=== PATIENT | female | born 1955 | race Caucasian/White ===

== ENCOUNTER → 2017-07-19 | Outpatient (CLI) | payer OTHER ==
[~2017-07-19] MED LIST: AMITIZA24 MCG PO; BUPROPION XL150 MG PO; LOVAZA1 GM PO; TIZANIDINE HCL4 MG PO; Z.0.LEVOTHYROXINE125 PO; Z.0.OXAPROZIN600 MG PO; Z.0.PREMARIN0.9 MG PO
--- NOTE | 2017-07-19 15:22 | Diagnostic Imaging Report ---
EXAM: Complete Abdominal Ultrasound INDICATION: \[id number] \S\1434 \S\ABNORMAL LIVER FUNCTION STUDIES COMPARISON: None available. TECHNIQUE: Transverse and longitudinal images of the upper abdomen were obtained. FINDINGS: Liver: Size: 13.1 cm in the right midclavicular line, normal Appearance: Normal echogenicity, questionable mildly nodular contour Mass: No focal masses Spleen: Size: 8.2 cm in length, normal Echogenicity: Normal Mass: No focal masses Gallbladder: Surgically absent. Bile Ducts: Intrahepatic Ducts: No dilatation Extrahepatic Ducts: Common bile duct measures 0.7 cm, no dilatation Pancreas: Visualized pancreas is unremarkable. Right Kidney: Size: 11.6 cm Echogenicity: Normal Parenchymal thickness: Normal Collecting System: No hydronephrosis Stone: None Cyst/Mass: None Left Kidney: Size: 10.4 cm Echogenicity: Normal Parenchymal thickness: Normal Collecting System: No hydronephrosis Stone: None Cyst/Mass: None Vessels: Aorta: Visualized portions are normal Inferior Vena Cava: Visualized portions are normal Main Portal Vein: 1 cm, normal size with hepatopetal flow. Free Fluid: No ascites or pleural effusion IMPRESSION: Questionable mildly nodular hepatic contour, which can be seen with cirrhotic changes. Otherwise unremarkable abdominal ultrasound. Signed by: Dr. Andrews Pritchett MD on 07/19/2017 3:18 PM
== END ==
LOC: US 14:09
PROVIDERS: ATTEND Family Medicine
DX: R94.5 Abnormal results of liver function studies (principal)
CPT/HCPCS: 76700

== ENCOUNTER → 2017-07-28 | Outpatient (CLI) | payer OTHER ==
[~2017-07-28] MED LIST changes: +GADOBENATE DIMEGLUMINE 1 ML IV ONE
[2017-07-28 09:36] LABS: BLOOD UREA NITROGEN 19 mg/dL (7-26); BUN/CREATININE RATIO 25 (6-25); CREATININE, SERUM 0.77 mg/dL (0.57-1.11); EST GLOMERULAR FILTRATION RATE > 60 ML/MIN (60-)
--- NOTE | 2017-07-28 11:57 | Diagnostic Imaging Report ---
PROCEDURE: MRI ABDOMEN WOW TECHNIQUE: COMPARISON: CT, CT ABDOMEN/PELVIS W, 04/02/2012, 9:38. Patients [facility], US, US ABDOMEN COMPLETE, 07/19/2017, 14:34. INDICATIONS: Abnormal ultrasound FINDINGS: LIVER: Slight nodular contour of the left hepatic lobe is again observed, no additional findings to suggest hepatic cirrhosis. No hepatic signal abnormality. 2.3 cm T1 hypointense lesion in the anterior aspect of segment 4A/4B on image 69 series 11 (arterial phase) not identified on the remainder postcontrast scans. There are a few tiny T2 hyperintense lesions scattered throughout the hepatic parenchyma consistent with small cysts, the largest measuring 2.55 cm on image 21 series 7, located just medial to the confluence of right and left hepatic ducts. No enhancing lesions. BILIARY: No ductal dilatation or filling defect. The gallbladder is surgically absent. PANCREAS: No mass or ductal dilatation. SPLEEN: No splenomegaly. ADRENALS: No nodules. KIDNEYS: Mild left pelvocaliectasis is nonspecific. No enhancing renal lesions. PERITONEUM / RETROPERITONEUM: No upper abdominal free fluid. LYMPH NODES: No upper abdominal lymphadenopathy. VESSELS: Unremarkable. BONES AND SOFT TISSUES: Unremarkable. IMPRESSION: 1. Slight nodularity of hepatic contour the left lobe again observed, however, no additional features of cirrhosis. No suspicious hepatic lesions. 2. Status post cholecystectomy. No significant biliary dilatation. Nalini Johnson M.D. Dictated by: Nalini Johnson M.D. on 07/28/2017 at 11:56 Electronically approved by: Nalini Johnson M.D. on 07/28/2017 at 11:56
== END ==
LOC: MRI 08:20
PROVIDERS: ATTEND Family Medicine
DX: R93.5 Abnormal findings on diagnostic imaging of other abdominal regions, including retroperitoneum (principal)
CPT/HCPCS: 36415; 74183; 82565; 84520

== ENCOUNTER → 2017-08-16 | Day surgery (SDC) | payer OTHER ==
[~2017-08-16] MED LIST changes: +ESTRADIOL1 EAC2; +ESTRADIOL1 MG PO; +FENTANYL CITRATE/PF 100MCG/2 ML INJ ONE; -GADOBENATE DIMEGLUMINE 1 ML IV ONE; +HYOSCYAMINE SULFATE 0.5 MG/ML AMP ONE; +MIDAZOLAM HCL 2 MG/2 ML VIAL ONE; +NAPROXEN250 MG PO; +ZETIA10 MG PO
--- OUTSIDE RECORDS SUMMARY | 2017-08-16 09:49 | XMS REPORT ---
Author Author [facility] Address Unknown Phone Unavailable Care Team Providers Care Body Line Finisher Name Role Phone LY LAM Unavailable Unavailable Problems This patient has no known problems. Allergies, Adverse Reactions, Alerts This patient has no known allergies or adverse reactions. Medications This patient has no known medications. Results Test Description Test Time Test Comments Text Results Atomic Results Result Comments MRI ABDOMEN WOW [place] [address] Patient Name: MASOOD MOREIRA MR #: [id number] : 1955 Age/Sex: 62/F Req # : [id number] [facility] Physician: Ordered by: LY LAM MD Report #: [id number] Location: MRI Room/Bed: Procedure: [id number] MRI/MRI ABDOMEN WOW Exam Date: Exam Time: REPORT STATUS: Signed PROCEDURE: MRI ABDOMEN WOW TECHNIQUE: COMPARISON: CT, CT ABDOMEN/PELVIS W, 04/02/2012, 9:38. [facility], US, US ABDOMEN COMPLETE, 07/19/2017, 14:34. INDICATIONS: Abnormal ultrasound FINDINGS: LIVER: Slight nodular contour of the left hepatic lobe is again observed, no additional findings to suggest hepatic cirrhosis. No hepatic signal abnormality. 2.3 cm T1 hypointense lesion in the anterior aspect of segment 4A/4B on image 69 series 11 (arterial phase) not identified on the remainder postcontrast scans. There are a few tiny T2 hyperintense lesions scattered throughout the hepatic parenchyma consistent with small cysts, the largest measuring 2.55 cm on image 21 series 7, located just medial to the confluence of right and left hepatic ducts. No enhancing lesions. BILIARY: No ductal dilatation or filling defect. The gallbladder is surgically absent. PANCREAS: No mass or ductal dilatation. SPLEEN: No splenomegaly. ADRENALS: No nodules. KIDNEYS: Mild left pelvocaliectasis is nonspecific. No enhancing renal lesions. PERITONEUM / RETROPERITONEUM: No upper abdominal free fluid. LYMPH NODES: No upper abdominal lymphadenopathy. VESSELS: Unremarkable. BONES AND SOFT TISSUES: Unremarkable. IMPRESSION: 1. Slight nodularity of hepatic contour the left lobe again observed, however, no additional features of cirrhosis. No suspicious hepatic lesions. 2. Status post cholecystectomy. No significant biliary dilatation. Nalini Chen M.D. Dictated by: Nalini Chen M.D. on 2017 at 11:56 Electronically approved by: Nalini Chen M.D. on 07/28/2017 at 11:56 Dictated By: BECKA CHEN MD, MD 1156 Transcribed By : ZAYRA on 07/28/17 1156 COPY TO: LY LAM MD ABDOMEN COMPLETE [place] [address] Patient Name: MASOOD MOREIRA MR #: [id number] : 1955 Age/Sex: 62/F Req #: [id number] Adm Physician: Ordered by: LY LAM MD Report #: [id number] Location: US Room/Bed: _ Procedure: [id number] US/US ABDOMEN COMPLETE Exam Date: 07/19/17 Exam Time: 1434 REPORT STATUS: Signed EXAM: Complete Abdominal Ultrasound INDICATION: COMPARISON: None available. TECHNIQUE: Transverse and longitudinal images of the upper abdomen were obtained. FINDINGS: Liver: Size: 13.1 cm in the right midclavicular line, normal Appearance: Normal echogenicity, questionable mildly nodular contour Mass: No focal masses Spleen: Size: 8.2 cm in length, normal Echogenicity: Normal Mass : No focal masses Gallbladder: Surgically absent. Bile Ducts: Intrahepatic Ducts: No dilatation Extrahepatic Ducts: Common bile duct measures 0.7 cm, no dilatation Pancreas: Visualized pancreas is unremarkable. Right Kidney: Size: 11.6 cm Echogenicity: Normal Parenchymal thickness: Normal Collecting System: No hydronephrosis Stone: None Cyst/Mass: None Left Kidney: Size: 10.4 cm Echogenicity: Normal Parenchymal thickness: Normal Collecting System: No hydronephrosis Stone: None Cyst/Mass: None Vessels: Aorta: Visualized portions are normal Inferior Vena Cava: Visualized portions are normal Main Portal Vein: 1 cm, normal size with hepatopetal flow. Free Fluid : No ascites or pleural effusion IMPRESSION: Questionable mildly nodular hepatic contour, which can be seen with cirrhotic changes. Otherwise unremarkable abdominal ultrasound. Signed by: Dr. Andrews Curry MD on 07/19/2017 3:18 PM Dictated By: ANDREWS CURRY MD 1518 Transcribed By: MINAL on 07/19/17 1518 COPY TO: LY LAM MD
--- NOTE | 2017-08-16 13:28 | Operative Report ---
DATE OF PROCEDURE: August 16, 2017 REFERRING PHYSICIAN: Dr. Gonsales. PROCEDURE PERFORMED: Colonoscopy and polypectomy. INDICATIONS FOR COLONOSCOPY: Colorectal cancer screening. Personal history of colon polyps. MEDICATION: Patient was done under MAC. Please see anesthesiologist's note. PROCEDURE: With the patient in the left lateral decubitus position, the flexible fiberoptic Olympus colonoscope was introduced into the rectum and advanced all the way to the cecum. The scope was then withdrawn slowly. Mucosa overlying the cecum, ascending colon and transverse colon appeared to be within normal limits. Diverticular disease was noted to involve the distal descending and the sigmoid colon. Three polyps were hot biopsied from the sigmoid, and 4 polyps were hot biopsied from the rectum. The scope was then retroflexed into the distal rectum and small internal hemorrhoids were noted, none of which was actively bleeding. The scope was then straightened out. The rectosigmoid area as well as the distal rectal area were decompressed. The scope was subsequently withdrawn. Patient tolerated the procedure well. IMPRESSION: 1. Diverticulosis. 2. Sigmoid colon polyps hot biopsied times 3. 3. Rectal polyps hot biopsied times 4. 4. Internal hemorrhoids, none actively bleeding. PLAN: Follow up histology. Initiate high-fiber low-fat diet. Initiate high-fiber supplement. Patient will need a followup colonoscopy in 3 years. Job#: [id number] EV cc:LY GONSALES MD
== END | disposition home or self-care (01) ==
LOC: OR 09:47
PROVIDERS: ATTEND Internal Medicine Gastroenterology
DX: Z12.11 Encounter for screening for malignant neoplasm of colon (principal); K63.5 Polyp of colon; K62.1 Rectal polyp; K57.30 Diverticulosis of large intestine without perforation or abscess without bleeding; K64.8 Other hemorrhoids; R94.5 Abnormal results of liver function studies; R00.1 Bradycardia, unspecified; E78.5 Hyperlipidemia, unspecified; E03.9 Hypothyroidism, unspecified; F32.9 Major depressive disorder, single episode, unspecified; Z01.810 Encounter for preprocedural cardiovascular examination
CPT/HCPCS: 45384; 93005; J1980; J2250

== ENCOUNTER → 2017-09-13 | Outpatient (CLI) | payer OTHER ==
[~2017-09-13] MED LIST changes: -FENTANYL CITRATE/PF 100MCG/2 ML INJ ONE; -HYOSCYAMINE SULFATE 0.5 MG/ML AMP ONE; -MIDAZOLAM HCL 2 MG/2 ML VIAL ONE
--- NOTE | 2017-09-13 19:33 | Diagnostic Imaging Report ---
Liver-Spleen Scan with SPECT Clinical information: Abnormal LFT's; nodules on liver seen on ultrasound. Comparison: MRI abdomen 07/28/2017; Abdominal US 07/19/2017 Report: Following intravenous administration of 7.7 mCi of Tc-99 and sulfur colloid, images of the liver and spleen were obtained in multiple projections. Tomographic images of the liver and spleen were also obtained. The liver appears normal to mildly increased in size. The spleen appears normal in size. Distribution of tracer activity is homogeneous throughout the hepatic and splenic parenchyma. No focal abnormalities are identified. No colloid shift is present. There is no apparent shift of tracer activity from the hepatic parenchyma to the spleen. Impression: 1. Borderline enlarged liver. 2. No scan evidence of hepatic or splenic masses. 3. Mild liver dysfunction is suspected. Correlate with liver function tests. 4. Hypersplenism is not present. Signed by: Dr. Savanah Sheridan M.D. on 09/13/2017 7:30 PM
== END ==
LOC: NM 09:08
PROVIDERS: ATTEND Internal Medicine Gastroenterology
DX: R94.5 Abnormal results of liver function studies (principal)
CPT/HCPCS: 78215; A9541

== ENCOUNTER → 2018-06-19 | Outpatient (CLI) | payer OTHER ==
--- NOTE | 2018-06-19 12:27 | Diagnostic Imaging Report ---
BILATERAL KNEES - 3 view(s) each HISTORY: Pain COMPARISON: None available. FINDINGS: Right: No displaced fracture. The osseous alignment is within normal limits. The joint spaces are well-maintained. The soft tissues appear unremarkable. Left: No displaced fracture. The osseous alignment is within normal limits. The joint spaces are well-maintained. The soft tissues appear unremarkable. IMPRESSION: No acute radiographic abnormality. Signed by: Dr. Andrews Pritchett MD on 06/19/2018 12:24 PM
== END ==
LOC: RAD 11:31
PROVIDERS: ATTEND Family Medicine
DX: M17.0 Bilateral primary osteoarthritis of knee (principal)

== ENCOUNTER → 2020-08-31 | Day surgery (SDC) | payer OTHER ==
[~2020-08-31] MED LIST changes: +ATENOLOL50 MG PO; +DUEXIS 800-26.1 EACH PO; +FENTANYL CITRATE/PF 100MCG/2 ML INJ ONE; +HYDROXYCHLOROQ200 MG PO; +LIDOCAINE HCL 2% LOCAL INJ 5 ML SDV VIAL INJ ONE; +PROPOFOL IV EMULSION 10 MG/ML 20 ML VIAL ONE; +ZELNORM6 MG PO
[2020-08-31 16:00] VITALS: BP 107/66
[2020-08-31 16:18] LABS: WBC,FECAL (FECAL LACTOFERRIN) NEGATIVE (NEGATIVE)
[2020-09-01 10:54] LABS: C DIFFICILE TOXIN A&B AMP PROB NEGATIVE (NEGATIVE)
== END | disposition home or self-care (01) ==
LOC: OR 11:34
PROVIDERS: ATTEND Internal Medicine Gastroenterology
DX: K52.9 Noninfective gastroenteritis and colitis, unspecified (principal); D12.2 Benign neoplasm of ascending colon; K62.1 Rectal polyp; K57.30 Diverticulosis of large intestine without perforation or abscess without bleeding; K59.00 Constipation, unspecified; K62.89 Other specified diseases of anus and rectum; K64.8 Other hemorrhoids; E03.9 Hypothyroidism, unspecified; I10 Essential (primary) hypertension; E78.5 Hyperlipidemia, unspecified; F95.9 Tic disorder, unspecified; R00.1 Bradycardia, unspecified; M19.90 Unspecified osteoarthritis, unspecified site; F32.9 Major depressive disorder, single episode, unspecified; Z88.6 Allergy status to analgesic agent; Z88.0 Allergy status to penicillin; Z01.810 Encounter for preprocedural cardiovascular examination; Z01.812 Encounter for preprocedural laboratory examination; Z20.822 Contact with and (suspected) exposure to COVID-19; Z68.27 Body mass index [BMI] 27.0-27.9, adult; Z90.49 Acquired absence of other specified parts of digestive tract
CPT/HCPCS: 45380; 83630; 83993; 87045; 87177; 87328; 87493; 93005; J3010; U0002; 45378; 45384; J2001

== ENCOUNTER → 2021-06-01 | Outpatient (CLI) | payer MEDICARE ==
[~2021-06-01] MED LIST changes: -FENTANYL CITRATE/PF 100MCG/2 ML INJ ONE; -LIDOCAINE HCL 2% LOCAL INJ 5 ML SDV VIAL INJ ONE; -PROPOFOL IV EMULSION 10 MG/ML 20 ML VIAL ONE
== END ==
LOC: MRI 07:22
PROVIDERS: ATTEND Internal Medicine
DX: M47.816 Spondylosis without myelopathy or radiculopathy, lumbar region (principal); M25.562 Pain in left knee; M25.561 Pain in right knee
CPT/HCPCS: 72148; 73565

== ENCOUNTER → 2022-03-23 | Outpatient (CLI) | payer MEDICARE | LOC: US 09:28 | PROVIDERS: ATTEND Nurse Practitioner Adult Health | DX: N18.31 Chronic kidney disease, stage 3a (principal) | CPT/HCPCS: 76770 ==

== ENCOUNTER → 2023-06-26 | Day surgery (SDC) | payer MEDICARE ==
[2023-06-21 12:23] LABS: BASOPHILS # (AUTO) 0.1 (0.0-0.1); EOSINOPHILS # (AUTO) 0.3 (0.0-0.4); HEMATOCRIT 41.9 % (34.2-44.1); HEMOGLOBIN 13.4 g/dL (12.0-16.0); LYMPHOCYTES # (AUTO) 1.4 (1.0-3.2); LYMPHOCYTES % 21.3 % (18.0-39.1); MEAN CORPUSCULAR HEMOGLOBIN 30.3 pg (28-32); MEAN CORPUSCULAR VOLUME 94.8 fL (81-99); MONOCYTES % 14.4 % (4.4-11.3); NEUTROPHILS # (AUTO) 3.8 (2.1-6.9); NEUTROPHILS % 57.1 % (38.7-80.0); PLATELET COUNT 201 x10e3/uL (140-360); RED BLOOD COUNT 4.42 x10e6/uL (3.6-5.1); RED CELL DISTRIBUTION WIDTH 13.1 % (11.7-14.4); WHITE BLOOD COUNT 6.58 x10e3/uL (4.8-10.8)
[~2023-06-26] MED LIST changes: +ARAVA20 MG PO; +EPHEDRINE SULFATE INJ 50 MG/ML VIAL ONE; +ESTRACE42.5 GM VG; +FENTANYL CITRATE/PF 100MCG/2 ML INJ ONE; +LACTATED RINGER'S 1,000 ML ONE; +LIDOCAINE HCL 2% LOCAL INJ 5 ML SDV VIAL INJ ONE; +NEURONTIN300 MG PO; +PROPOFOL IV EMULSION 10 MG/ML 20 ML VIAL ONE; +PROPOFOL IV EMULSION 10 MG/ML 50 ML VIAL IV ONE
[2023-06-26 10:57] VITALS: TEMP 97.8
[2023-06-26 11:30] VITALS: BP 110/75; PULSE 70; RESP 17; O2SAT 98
== END | disposition home or self-care (01) ==
LOC: OR 08:56
PROVIDERS: ATTEND Internal Medicine Gastroenterology
DX: Z09 Encounter for follow-up examination after completed treatment for conditions other than malignant neoplasm (principal); D12.4 Benign neoplasm of descending colon; K57.30 Diverticulosis of large intestine without perforation or abscess without bleeding; K58.9 Irritable bowel syndrome, unspecified; I10 Essential (primary) hypertension; E78.5 Hyperlipidemia, unspecified; E03.9 Hypothyroidism, unspecified; F32.A Depression, unspecified; M54.9 Dorsalgia, unspecified; M54.2 Cervicalgia; M06.9 Rheumatoid arthritis, unspecified; Z88.6 Allergy status to analgesic agent; Z88.0 Allergy status to penicillin; Z01.810 Encounter for preprocedural cardiovascular examination; Z01.812 Encounter for preprocedural laboratory examination; Z79.899 Other long term (current) drug therapy
CPT/HCPCS: 36415; 45385; 85025; 88305; 93005; J2001; J2704 ×2; J3010; J7121; 45378

== ENCOUNTER → 2025-02-11 | Outpatient (REF) | payer MEDICARE ==
[~2025-02-11] MED LIST changes: -EPHEDRINE SULFATE INJ 50 MG/ML VIAL ONE; -FENTANYL CITRATE/PF 100MCG/2 ML INJ ONE; -LACTATED RINGER'S 1,000 ML ONE; -LIDOCAINE HCL 2% LOCAL INJ 5 ML SDV VIAL INJ ONE; -PROPOFOL IV EMULSION 10 MG/ML 20 ML VIAL ONE; -PROPOFOL IV EMULSION 10 MG/ML 50 ML VIAL IV ONE
== END ==
LOC: RAD 14:53
PROVIDERS: ATTEND Family Medicine
DX: M25.551 Pain in right hip (principal); M25.561 Pain in right knee